=== PATIENT | female | born 2000 | race African-American/Black ===

== ENCOUNTER 2020-12-29 03:13 | Emergency (ER) | payer SELFPAY ==
[~2020-12-29] VITALS: Ht 162.6 cm; Wt 45.4 kg
[2020-12-29 03:20] VITALS: BP 121/72
--- NOTE | 2020-12-29 03:20 | NUR ---
TO BED AMBULATORY
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
--- NOTE | 2020-12-29 04:25 | NUR ---
REPORT GIVEN TO MENDO[facility] ROGEL
--- NOTE | 2020-12-29 04:41 | NUR ---
PATIENT ELOPED FROM FACILITY. DISCHARGE INSTRUCTIONS NOT GIVEN TO PATIENT. DR. HOGAN AND [place] PD NOTIFIED. NO NURSING INTERVENTION DONE.
== END 2020-12-29 04:41 | disposition left against medical advice (07) ==
LOC: MED 03:13
DX: T74.21XA Adult sexual abuse, confirmed, initial encounter (principal); J45.909 Unspecified asthma, uncomplicated
CPT/HCPCS: 99281